=== PATIENT | female | born 1995 | race African-American/Black ===

== ENCOUNTER 2021-07-13 14:20 | Emergency (ER) | payer MEDICAID ==
[~2021-07-13] VITALS: Ht 167.6 cm; Wt 70.0 kg
[2021-07-13 14:22] VITALS: BP 108/79
== END 2021-07-13 22:08 | disposition left against medical advice (07) ==
LOC: ER 14:20
DX: R10.9 Unspecified abdominal pain (principal); Z53.21 Procedure and treatment not carried out due to patient leaving prior to being seen by health care provider